=== PATIENT | male | born 2000 | race Two or more races ===

== ENCOUNTER → 2024-12-24 | Emergency (ER) | payer MEDICAID ==
[~2024-12-24] VITALS: Ht 172.7 cm; Wt 79.4 kg
[~2024-12-24] MED LIST: AMOX500C2 PO
[2024-12-24 18:21] VITALS: BP 122/72; TEMP 98; O2SAT 98
[2024-12-25 22:54] LABS: HIV-1/2 ANTIBODY NON REACTIVE (NONREACTIVE)
[2024-12-27 07:07] LABS: RAPID PLASMA REAGIN QUAL. Non Reactive (Non Reactive)
[2024-12-28 17:06] LABS: *HSV 1 DNA PCR Negative (Negative); *HSV 2 DNA PCR Negative (Negative)
== END | disposition home or self-care (01) ==
LOC: ER 18:16
DX: J02.9 Acute pharyngitis, unspecified (principal); R06.02 Shortness of breath; R07.9 Chest pain, unspecified; R13.10 Dysphagia, unspecified
CPT/HCPCS: 36415; 86403-TC; 86592; 86593; 87070-TC; 87806